=== PATIENT | female | born 1985 | race African-American/Black ===

== ENCOUNTER 2020-12-08 13:25 | Outpatient (CLI) | payer OTHER, SELFPAY ==
--- NOTE | ~2020-12-08 | MR_ITS ---
EXAMINATION: MR knee RT wo con DATE: 12/08/2020 14:07 INDICATION: Right knee pain. Meniscus tear. TECHNIQUE: Magnetic resonance imaging (MRI) of the right knee was performed without intravenous contr ast. Sequences included axial PD-weighted FS FSE, coronal PD-weighted FSE and PD-weighted FS FSE, sag ittal PD-weighted FSE, and sagittal T2-weighted FS FSE. COMPARISON: None. FINDINGS: Medial compartment: Medial meniscus is normal. Medial compartment cartilage is normal. Lateral compartment: Lateral meniscus is normal. Lateral compartment cartilage is normal. Patellofemoral compartment: Patellar cartilage is normal. Trochlear cartilage is normal. Ligaments and tendons: There is thickening and increased signal in anterior cruciate ligament, consistent with mucoid degene ration. Posterior cruciate ligament is normal. Medial collateral ligament and lateral collateral liga ment complex are normal. There is mild patellar tendinopathy. Fluid: There is a small knee joint effusion. IMPRESSION: 1. Normal menisci. 2. Small knee joint effusion. Reviewed, dictated and finalized at location A.
== END 2020-12-08 13:26 ==
PROVIDERS: PCP Family Medicine
DX: S83.206A Unspecified tear of unspecified meniscus, current injury, right knee, initial encounter (principal); X58.XXXA Exposure to other specified factors, initial encounter; M25.461 Effusion, right knee
CPT/HCPCS: 73721